=== PATIENT | female | born 1970 | race Hispanic/Latino ===

== ENCOUNTER 2018-01-17 13:11 | Day surgery (SDC) | payer BC ==
[2018-01-11 14:30] VITALS: BMI 34.8
[2018-01-17 14:00] LABS: BASO # 0.02 K/mm3 (0.0-2.0); BASO % 0.5 % (0.0-3.0); EOS # 0.1 (0.0-0.7); EOS % 1.6 % (1.5-5.0); GRAN # 3.43 (1.4-6.5); GRAN % 77.2 % (50.0-68.0); HEMOGLOBIN 11.5 g/dL (12.0-16.0); LYMPH # 0.7 (1.2-3.4); LYMPH % 16.4 % (22.0-35.0); MEAN CELL VOLUME 87.6 fl (80.0-105.0); MEAN CORPUSCULAR HEMOGLOBIN 29.6 pg (25.0-35.0); MEAN CORPUSCULAR HGB CONC 33.8 g/dl (31.0-37.0); MEAN PLATELET VOLUME 10.3 fl (7.0-11.0); MONO # 0.2 (0.1-0.6); MONO % 4.3 % (1.0-6.0); RBC 3.88 10^6/uL (3.5-6.1); RED CELL DISTRIBUTION WIDTH 13.7 % (11.5-14.5); WHITE BLOOD COUNT 4.4 10^3/ul (4.5-11.0)
[2018-01-17 14:13] LABS: INR 1.06 (0.93-1.08); PARTIAL THROMBOPLASTIN TIME 25.9 Seconds (25.1-36.5); PROTHROMBIN TIME 12.1 SECONDS (9.4-12.5)
[2018-01-17 14:17] LABS: BLOOD UREA NITROGEN 34 mg/dL (7-21); CALCIUM 9.2 mg/dL (8.4-10.5); GFR AFRICAN-AMERICAN > 60; GFR NON-AFRICAN AMERICAN > 60
[2018-01-17] MEDS ORDERED: Midazolam 2 MG/2 ML VIAL ONE (15:24)
[2018-01-17] MEDS ORDERED: Lidocaine 1% Inj (20ml) ONE (15:25)
[2018-01-17] MEDS ORDERED: Oxycodone/Acetaminophen 5/325 mg Tab PO PRN (16:54)
[2018-01-17] MEDS ORDERED: Sodium Chloride 0.45% 1,000 ML IV SCH (17:00)
[2018-01-17 18:05] VITALS: BP 115/63; PULSE 62; RESP 18; TEMP 98; O2SAT 98
--- NOTE | 2018-01-17 19:28 | CT ---
PROCEDURE: CT guided left iliac wing biopsy. HISTORY: Breast CA. 0.5 cm lytic left iliac wing lesion on PET-CT. Rule out malignancy. Possible benign lesion. PHYSICIAN(S): Brian Denney MD. TECHNIQUE: The relative risks and indications of the procedure were explained to the patient and consent obtained. The patient was placed supine on the CT scanner and preliminary images through the pelvis obtained. Conscious sedation and monitoring were provided throughout the procedure by a nurse. There is a well-circumscribed 2.5 cm lytic lesion in the left iliac wing anteriorly.. A left anterior approach was selected and the area prepped and draped in the usual sterile fashion. 1% Xylocaine was used to anesthetize the skin and soft tissues. And on control needle was advanced into the lesion its position confirmed with CT. Two passes were performed for core biopsies of the lytic lesion in the left iliac bone. The patient tolerated the procedure well. IMPRESSION: 1. CT-guided left iliac bone biopsy as described above.
== END 2018-01-17 18:30 | disposition home or self-care (01) ==
LOC: SDS 13:11
PROVIDERS: ATTEND Radiology Vascular & Interventional Radiology
DX: M89.9 Disorder of bone, unspecified (principal); Z85.3 Personal history of malignant neoplasm of breast; Z92.21 Personal history of antineoplastic chemotherapy; Z92.3 Personal history of irradiation; I10 Essential (primary) hypertension
CPT/HCPCS: 20225; 36415; 77012; 80048; 85025; 85610; 85730; 88307; 99152; 99153; J2250; J2405; J3010; J7030